=== PATIENT | male | born 1955 | race Caucasian/White ===

== ENCOUNTER 2018-09-26 15:16 | Emergency (ER) | payer OTHER ==
[2018-09-26 15:25] VITALS: TEMP 99.1; BMI 33.5
[2018-09-26] MEDS ORDERED: ONDANSETRON 4 MG/2 ML VIAL IVPUSH ONE (15:26)
[2018-09-26] MEDS ORDERED: SODIUM CHLORIDE 1,000 ML IV STA ×2 (15:26→17:40)
--- NOTE | 2018-09-26 15:26 | PDOC ---
Rapid Medical Evaluation Chief Complaint: Pain Time Seen by Provider: 09/26/18 15:24 Medical Evaluation: Allergies Allergy/AdvReac Type Severity Reaction Status Date / Time No Known Allergies Allergy Verified 09/26/18 15:21 Vital Signs Temp Pulse Resp BP Pulse Ox 99.1 F 120 H 18 105/74 96 09/26/18 15:21 09/26/18 15:21 09/26/18 15:21 09/26/18 15:21 09/26/18 15:21 09/26/18 15:25 Pt c/o: gen abd pain, n/v/belching, diarrhea Pt on brief exam: upper abd tenderness, tachy, diaphoretic Pt ordered for: labs, ekg, ua, iv, ivf pt to proceed to the ED Discharge Disposition - Diagnosis Abdominal pain - Referrals - Patient Instructions - Post Discharge Activity
[2018-09-26] MEDS ORDERED: ONDANSETRON 4 MG/2 ML VIAL ONE (15:54)
[2018-09-26] MEDS ORDERED: FAMOTIDINE 20 MG/50 ML IVPB 20 MG/50 ML MG IVPB ONE ×2 (16:52→17:02)
[2018-09-26] MEDS ORDERED: ACETAMINOPHEN 1000 MG/100 ML VIAL (NON FORMULARY) IVPB ONE (16:52)
[2018-09-26] MEDS ORDERED: ACETAMINOPHEN INJECTION 100 ML IVPB ONE (17:02)
[2018-09-26 17:09] LABS: BASO % 0.2 % (0-2.0); HEMATOCRIT 47.2 % (35.4-49); LYMPH % 5.8 % (8-40); MCH 29.3 pg (25.7-33.7); MCHC 33.9 g/dl (32.0-35.9); MEAN CELL VOLUME 86.4 fl (80-96); MEAN PLT VOLUME 10.1 fl (7.5-11.1); MONO % 5.2 % (3.8-10.2); NEUT % 88.8 % (42.8-82.8); PLATELET COUNT 215 K/MM3 (134-434); RBC 5.46 M/mm3 (4.00-5.60); RDW 13.1 % (11.9-15.9); WHITE BLOOD COUNT 8.1 K/mm3 (4.0-10.0)
[2018-09-26 17:13] LABS: EPI CELLS 1.4 /HPF (0-5/HPF); HYALINE CASTS 7 /lpf (0-8); URINE APPEARANCE CLEAR; URINE BACTERIA 1.7 /hpf (NEGATIVE); URINE BILIRUBIN NEGATIVE (NEGATIVE); URINE COLOR DK YELLOW; URINE GLUCOSE (UA) NEGATIVE (NEGATIVE); URINE KETONE TRACE (NEGATIVE); URINE LEUK ESTERASE TRACE (NEGATIVE); URINE NITRITE NEGATIVE (NEGATIVE); URINE PROTEIN NEGATIVE (NEGATIVE); URINE RBC 3 /hpf (0-4); URINE WBC 3 /hpf (0-5)
[2018-09-26 17:51] LABS: ALBUMIN 3.9 g/dl (3.4-5.0); ALK PHOS 57 U/L (45-117); ANION GAP 10 MMOL/L (8-16); BILIRUBIN,TOTAL 0.8 mg/dL (0.2-1); BLOOD UREA NITROGEN 19.1 mg/dL (7-18); CHLORIDE 106 mmol/L (98-107); CO2 24 mmol/L (21-32); GLUCOSE,RANDOM 110 mg/dL (74-106); LIPASE 73 U/L (73-393); MAGNESIUM 2.1 mg/dL (1.8-2.4); POTASSIUM 4.5 mmol/L (3.5-5.1); SGOT/AST 25 U/L (15-37); SGPT/ALT 35 U/L (13-61); SODIUM 140 mmol/L (136-145); TOT PROT 7.6 g/dl (6.4-8.2)
--- NOTE | 2018-09-26 18:43 | PDOC ---
History of Present Illness - General Chief Complaint: Pain Stated Complaint: SENT BY PCP Time Seen by Provider: 09/26/18 15:24 - History of Present Illness Initial Comments: 63yo M with PMH of ?HTN/HLD, cholecystectomy (patient is unsure and does not take medications) sent by his primary care physician for evaluation of abdominal pain. Patient states he started having abdominal pain at around 6am. The pain is rated 10/10 and described as "sharp." Nothing makes it better or worse. He also complains of nausea and multiple episodes of nonbloody bilious vomiting and retching. Has not been able to tolerate po intake. He has felt pain similar to this before but is unable to state a diagnosis. Follows with a GI physician but has not seen them in two years. Had a brown semi-loose stool this morning that was without blood. Colonoscopy was a few years ago and was "normal." Had an endoscopy more than ten years ago which was "normal." Denies urinary symptoms. No fevers, chills, chest pain, or shortness of breaht. PCP: Dr. Beltran GI: Dr. Aburto Past History - Past Medical History Allergies/Adverse Reactions: Allergies Allergy/AdvReac Type Severity Reaction Status Date / Time No Known Allergies Allergy Verified 09/26/18 15:21 Home Medications: Ambulatory Orders Ondansetron [Zofran -] 4 mg PO TID #21 tablet 09/26/18 COPD: No - Immunization History Immunization Up to Date: Yes - Suicide/Smoking/Psychosocial Hx Smoking History: Never smoked Information on smoking cessation initiated: No Hx Alcohol Use: No Drug/Substance Use Hx: No Review of Systems - Review of Systems Comments:: Constitutional: no fever, no chills HEENT: no throat pain, no dysphagia Cardiovascular: no chest pain, no palpitations Respiratory: no cough, no shortness of breath Gastrointestinal: +abdominal pain, +vomiting Genitourinary: no dysuria, no frequency Musculoskeletal: no myalgia, no arthralgia Skin: no rash, no itching Neurologic: no headache, no weakness *Physical Exam - Vital Signs Last Vital Signs Temp Pulse Resp BP Pulse Ox 99.1 F 120 H 18 105/74 96 09/26/18 15:21 09/26/18 15:21 09/26/18 15:21 09/26/18 15:21 09/26/18 15:21 - Physical Exam Comments: General: Awake, alert, and fully oriented, in no acute distress Head: No signs of trauma Eyes: EOMI, sclera anicteric ENT: Dry mucus membranes Neck: Normal ROM, supple Lungs: Lungs clear, Normal breath sounds Cardio: Regular rhythm, S1 and S2 present Abdomen: Epigastric tenderness to palpation extending toward right of umbilicus. Soft, nondistended. No guarding, no rebound, no masses. Extremities: Normal range of motion, Distal pulses present SKIN: Warm, Dry, normal turgor Neurologic: Cranial nerves II through XII grossly intact. Normal speech ED Treatment Course - LABORATORY CBC & Chemistry Diagram: 09/26/18 16:26 09/26/18 16:26 - ADDITIONAL ORDERS Additional order review: Laboratory Results 09/26/18 09/26/18 09/26/18 16:26 16:26 16:26 Sodium 140 Potassium 4.5 Chloride 106 Carbon Dioxide 24 Anion Gap 10 BUN 19.1 H Creatinine 1.0 Est GFR (CKD-EPI)AfAm 93.73 Est GFR (CKD-EPI)NonAf 80.87 Random Glucose 110 H Lactic Acid 2.8 H* Calcium 9.0 Magnesium 2.1 Total Bilirubin 0.8 AST 25 ALT 35 Alkaline Phosphatase 57 Creatine Kinase 154 Creatine Kinase Index 0.6 CK-MB (CK-2) < 1.0 Troponin I < 0.02 Total Protein 7.6 Albumin 3.9 Lipase 73 Urine Color Dk yellow Urine Appearance Clear Urine pH 7.0 Ur Specific [place] 1.028 Urine Protein Negative Urine Glucose (UA) Negative Urine Ketones Trace H Urine Blood Negative Urine Nitrite Negative Urine Bilirubin Negative Urine Urobilinogen 1.0 Ur Leukocyte Esterase Trace Urine WBC (Auto) 3 Urine RBC (Auto) 3 Urine Casts (Auto) 7 U Epithel Cells (Auto) 1.4 Urine Bacteria (Auto) 1.7 09/26/18 16:26 RBC 5.46 MCV 86.4 MCHC 33.9 RDW 13.1 MPV 10.1 Neutrophils % 88.8 H Lymphocytes % 5.8 L Monocytes % 5.2 Eosinophils % 0.0 Basophils % 0.2 - RADIOLOGY Radiology Studies Ordered: Category Date Time Status ABDOMEN & PELVIS CT WITH CONTR [CT] Stat CT Scan 09/26/18 16:52 Ordered CHEST X-RAY PORTABLE* [RAD] Stat Radiology 09/26/18 17:40 Taken - Medications Given in the ED: ED Medications Discontinued Medications Generic Name Dose Route Start Last Admin Trade Name Edwin PRN Reason Stop Dose Admin Acetaminophen 1,000 mg 09/26/18 16:52 09/26/18 17:06 Ofirmev Injection - IVPB 09/26/18 16:53 1,000 mg ONCE ONE Administration Sodium Chloride 1,000 mls @ 1,000 mls/hr 09/26/18 15:26 09/26/18 16:35 Normal Saline - IV 09/26/18 16:25 1,000 mls/hr ASDIR STA Administration Famotidine/Sodium Chloride 20 mg in 50 mls @ 100 mls/hr 09/26/18 16:52 17:06 Pepcid 20 Mg Premixed Ivpb - IVPB 09/26/18 17:21 100 mls/hr ONCE ONE Administration Sodium Chloride 1,000 mls @ 1,000 mls/hr 09/26/18 17:40 09/26/18 18:03 Normal Saline - IV 09/26/18 18:39 1,000 mls/hr ASDIR STA Administration Ondansetron HCl 4 mg 09/26/18 15:26 09/26/18 16:35 Zofran Injection IVPUSH 09/26/18 15:27 4 mg ONCE ONE Administration Medical Decision Making - Medical Decision Making 63yo M with PMH of ?HTN/HLD, cholecystectomy (patient is unsure and does not take medications) sent by his primary care physician for evaluation of abdominal pain. DDX including but not limited to gastroenteritis, gastritis, mesenteric ischemia , appendicitis, diverticulitis, pancreatitis, nephrolithiasis, UTI, ACS, AAA VSS significant for tachycardia, HR 120 Labs, EKG, CXR CTAP Fluids, Zofran, Famotidine, Ofirmev Patient noted to be hypoxic in the low 90s while laying in stretcher-- sats increased with supplemental oxygen. Patient denies history of lung pathology. Does not complain of shortness of breath or chest pain. D-Dimer ordered to assess for PE CBC WBC 8.1 K/mm3 (4.0-10.0) 09/26/18 16:26 RBC 5.46 M/mm3 (4.00-5.60) 09/26/18 16:26 Hgb 16.0 GM/dL (11.7-16.9) 09/26/18 16:26 Hct 47.2 % (35.4-49) 09/26/18 16:26 MCV 86.4 fl (80-96) 09/26/18 16:26 MCH 29.3 pg (25.7-33.7) 09/26/18 16:26 MCHC 33.9 g/dl (32.0-35.9) 09/26/18 16:26 RDW 13.1 % (11.9-15.9) 09/26/18 16:26 Plt Count 215 K/MM3 (134-434) 09/26/18 16:26 MPV 10.1 fl (7.5-11.1) 09/26/18 16:26 Absolute Neuts (auto) 7.2 K/mm3 (1.5-8.0) 09/26/18 16:26 Neutrophils % 88.8 % (42.8-82.8) H 09/26/18 16:26 Lymphocytes % 5.8 % (8-40) L 09/26/18 16:26 Monocytes % 5.2 % (3.8-10.2) 09/26/18 16:26 Eosinophils % 0.0 % (0-4.5) 09/26/18 16:26 Basophils % 0.2 % (0-2.0) 09/26/18 16:26 Nucleated RBC % 0 % (0-0) 09/26/18 16:26 No anemia or leukocytosis CMP Sodium 140 mmol/L (136-145) 09/26/18 16:26 Potassium 4.5 mmol/L (3.5-5.1) 09/26/18 16:26 Chloride 106 mmol/L (98-107) 09/26/18 16:26 Carbon Dioxide 24 mmol/L (21-32) 09/26/18 16:26 Anion Gap 10 MMOL/L (8-16) 09/26/18 16:26 BUN 19.1 mg/dL (7-18) H 09/26/18 16:26 Creatinine 1.0 mg/dL (0.55-1.3) 09/26/18 16:26 Est GFR (CKD-EPI)AfAm 93.73 09/26/18 16:26 Est GFR (CKD-EPI)NonAf 80.87 09/26/18 16:26 Random Glucose 110 mg/dL (74-106) H 09/26/18 16:26 Lactic Acid 2.8 mmol/L (0.4-2.0) H 09/26/18 20:20 Calcium 9.0 mg/dL (8.5-10.1) 09/26/18 16:26 Magnesium 2.1 mg/dL (1.8-2.4) 09/26/18 16:26 Total Bilirubin 0.8 mg/dL (0.2-1) 09/26/18 16:26 AST 25 U/L (15-37) 09/26/18 16:26 ALT 35 U/L (13-61) 09/26/18 16:26 Alkaline Phosphatase 57 U/L (45-117) 09/26/18 16:26 Creatine Kinase 154 U/L (26-308) 09/26/18 16:26 Creatine Kinase Index 0.6 % (0.0-5.0) 09/26/18 16:26 CK-MB (CK-2) < 1.0 ng/mL (0.5-3.6) 09/26/18 16:26 Troponin I < 0.02 ng/ml (0.00-0.05) 09/26/18 16:26 Total Protein 7.6 g/dl (6.4-8.2) 09/26/18 16:26 Albumin 3.9 g/dl (3.4-5.0) 09/26/18 16:26 Lipase 73 U/L (73-393) 09/26/18 16:26 Electrolytes unremarkable Lactate 2.8. Ordered another 1L NS as well as repeat lactate. CXR without acute pathology, my impression EKG: rate 105, QTc 446, sinus tachycardia CTAP: "Sequential axial images were obtained from the domes of the diaphragms through the symphysis pubis following the administration of both oral and intravenous contrast material. Atelectatic changes are noted at both lung bases. The pancreas is normal in size and texture no pancreatic masses identified. There are no peripancreatic inflammatory changes or fluid collections suspicious for acute/chronic pancreatitis. The liver is normal in size. It is hypodense in texture consistent with diffuse fatty infiltration. No mass lesions identified within the liver. The spleen, adrenal glands and kidneys demonstrate no significant abnormalities. The gallbladder has been removed. There is no evidence of intra-abdominal or retroperitoneal lymphadenopathy or fluid collections. There is no evidence of pneumoperitoneum, bowel obstruction or intra-abdominal abscess There is no CT evidence of acute appendicitis or diverticulitis. Examination of the pelvis demonstrates no evidence of pelvic masses, fluid collections or lymphadenopathy. There is malrotation of the colon with the entire colon on the right side of the abdomen. There is no evidence of acute bony abnormalities. IMPRESSION: 1. Bibasilar atelectasis. 2. Diffuse fatty infiltration of liver. 3. Colonic malrotation. 4. No evidence pancreatitis or acute pathology within the abdomen or pelvis. Please see above discussion. " Patient signed out to Dr. Pham and adi team 09/26/18 19:44 *DC/Admit/Observation/Transfer Diagnosis at time of Disposition: Abdominal pain Qualifiers: Abdominal location: unspecified location Qualified Code(s): R10.9 - Unspecified abdominal pain - Discharge Dispostion Disposition: HOME Condition at time of disposition: Stable - Prescriptions Prescriptions: Ondansetron [Zofran -] 4 mg PO TID #21 tablet - Referrals - Patient Instructions Printed Discharge Instructions: DI for Abdominal Pain-Adult Additional Instructions: 1) Please follow-up with your primary care doctor in the next 2-3 days. Please call tomorrow to schedule a follow up appointment. If you cannot follow up with your doctor within 1 week please return to the Emergency Department for any urgent issues. 2) Your laboratory / imaging results were normal here in the ER. 3) If you have any worsening of symptoms or any other concerns please return to the ER immediately. Return if worsening symptoms including fevers, headache, vomiting, visual or hearing disturbances, abdominal pain, chest pain, shortness of breath, syncope, dehydration, inability to take things by mouth/vomiting, altered mental status, or worsening concerning symptoms. 4) Please continue taking your home medications as directed. Your medications on discharge include Zofran for nausea. Do not drink alcohol with your medications. - Post Discharge Activity
--- NOTE | 2018-09-26 19:12 | PDOC ---
Documentation entered by Oleksandr Callahan SCRIBE, acting as scribe for Geronimo Moreno MD. Geronimo Moreno MD: This documentation has been prepared by the [place] sullivan Elijah, SCRIBE, under my direction and personally reviewed by me in its entirety. I confirm that the documentation accurately reflects all work, treatment, procedures, and medical decision making performed by me. Attending Attestation - Resident Resident Name: Tatiana Arshad - ED Attending Attestation I have performed the following: I have examined & evaluated the patient, The case was reviewed & discussed with the resident, I agree w/resident's findings & plan, Exceptions are as noted - HPI HPI: 09/26/18 17:48 Patient is a 63 year old male with a significant past medical history of HTN and Colonoscopy (x2) who presents to the ED with sharp abdominal pain beginning today. The patient reports that the pain is in the Upper Abdominal and can be worsened with touch. Patient also reports nausea and 3-4 episodes of NBNB vomit associated with back pain. Patient also mentioned months of having food and drink go the wrong way with consumption. Denies Dyspnea on exertion, cough, fever, chills Allergies: NKA PCP: Dr. Beltran - Physicial Exam PE: 09/26/18 17:39 GENERAL: The patient is awake, alert, and fully oriented, Nontoxic - in no acute distress. HEAD: Normocephalic, atraumatic. EYES: extraocular movements intact, sclera anicteric, conjunctiva clear. ENT: Normal voice, Moist mucous membranes. NECK: Normal range of motion, supple ABDOMEN: mild R sided abd ttp, no rebound/guarding NEUROLOGICAL: No facial assymetry, Normal speech, moving all 4 ext spontaneously and symmetrically PSYCH: Normal mood, normal affect. SKIN: Warm, Dry, normal turgor, - Medical Decision Making 09/26/18 18:11 63y M hx of htn, presents with sharp epgastric/right sided abd pain since earlier today, associated with nebnb vomiting. pt notes pain does occaionally radiate to the back. pt noted to be tachy to 120 which improved without interveition, also slightly hypoxic w triage vital signs but without any respiratory complaints will obtain cxr ddx - pancreatitis, gastritis, pna, liver disease will obtain bloodwork, ct abdomen 09/26/18 19:12 labs reviewed noted for elevated lactic acid awaiting CT abd signed out to evening team to fu and reasesss Heart Score/ECG Review - ECG Impressions Comment:: 09/26/18 19:41 ekg performed 15:19 rate of 105 normal axis normal r wave progression no st change suggestive of acute ischemia impression: sinus tachycardia
[2018-09-26 20:28] VITALS: BP 113/72; PULSE 90
--- NOTE | 2018-09-26 21:29 | PDOC ---
*Physical Exam - Vital Signs Last Vital Signs Temp Pulse Resp BP Pulse Ox 99.1 F 90 20 113/72 99 09/26/18 15:21 09/26/18 20:26 09/26/18 20:26 09/26/18 20:26 09/26/18 20:26 - Physical Exam Comments: 09/26/18 22:41 General Appearance: Nourished. No Apparent Distress HEENT: No Pharyngeal Erythema, Tonsillar Exudate, Tonsillar Erythema Neck: No Cervical Lymphadenopathy Respiratory/Chest: Lungs Clear, Normal Breath Sounds. No Crackles, Rales, Rhonchi, Wheezing Cardiovascular: Regular Rhythm, Regular Rate. No Murmur, Gallops, Rubs Gastrointestinal/Abdominal: Normal Bowel Sounds, Soft. No Guarding, Rebound, Tenderness Musculoskeletal: No CVA Tenderness Extremity: Normal Capillary Refill Integumentary: Normal Color, Dry, Warm Neurologic: Fully Oriented, Alert, Normal Mood/Affect, Normal Response, ED Treatment Course - LABORATORY CBC & Chemistry Diagram: 09/26/18 16:26 09/26/18 16:26 - ADDITIONAL ORDERS Additional order review: Laboratory Results 09/26/18 09/26/18 09/26/18 20:20 20:20 16:26 D-Dimer < 215 Sodium Potassium Chloride Carbon Dioxide Anion Gap BUN Creatinine Est GFR (CKD-EPI)AfAm Est GFR (CKD-EPI)NonAf Random Glucose Lactic Acid 0.9 2.8 H* Calcium Magnesium Total Bilirubin AST ALT Alkaline Phosphatase Creatine Kinase Creatine Kinase Index CK-MB (CK-2) Troponin I Total Protein Albumin Lipase Urine Color Urine Appearance Urine pH Ur Specific [place] Urine Protein Urine Glucose (UA) Urine Ketones Urine Blood Urine Nitrite Urine Bilirubin Urine Urobilinogen Ur Leukocyte Esterase Urine WBC (Auto) Urine RBC (Auto) Urine Casts (Auto) U Epithel Cells (Auto) Urine Bacteria (Auto) 09/26/18 09/26/18 16:26 16:26 D-Dimer Sodium 140 Potassium 4.5 Chloride 106 Carbon Dioxide 24 Anion Gap 10 BUN 19.1 H Creatinine 1.0 Est GFR (CKD-EPI)AfAm 93.73 Est GFR (CKD-EPI)NonAf 80.87 Random Glucose 110 H Lactic Acid Calcium 9.0 Magnesium 2.1 Total Bilirubin 0.8 AST 25 ALT 35 Alkaline Phosphatase 57 Creatine Kinase 154 Creatine Kinase Index 0.6 CK-MB (CK-2) < 1.0 Troponin I < 0.02 Total Protein 7.6 Albumin 3.9 Lipase 73 Urine Color Dk yellow Urine Appearance Clear Urine pH 7.0 Ur Specific [place] 1.028 Urine Protein Negative Urine Glucose (UA) Negative Urine Ketones Trace H Urine Blood Negative Urine Nitrite Negative Urine Bilirubin Negative Urine Urobilinogen 1.0 Ur Leukocyte Esterase Trace Urine WBC (Auto) 3 Urine RBC (Auto) 3 Urine Casts (Auto) 7 U Epithel Cells (Auto) 1.4 Urine Bacteria (Auto) 1.7 09/26/18 16:26 RBC 5.46 MCV 86.4 MCHC 33.9 RDW 13.1 MPV 10.1 Neutrophils % 88.8 H Lymphocytes % 5.8 L Monocytes % 5.2 Eosinophils % 0.0 Basophils % 0.2 - Medications Given in the ED: ED Medications Discontinued Medications Generic Name Dose Route Start Last Admin Trade Name Freq PRN Reason Stop Dose Admin Acetaminophen 1,000 mg 09/26/18 16:52 09/26/18 17:06 Ofirmev Injection - IVPB 09/26/18 16:53 1,000 mg ONCE ONE Administration Sodium Chloride 1,000 mls @ 1,000 mls/hr 09/26/18 15:26 09/26/18 16:35 Normal Saline - IV 09/26/18 16:25 1,000 mls/hr ASDIR STA Administration Famotidine/Sodium Chloride 20 mg in 50 mls @ 100 mls/hr 09/26/18 16:52 17:06 Pepcid 20 Mg Premixed Ivpb - IVPB 09/26/18 17:21 100 mls/hr ONCE ONE Administration Sodium Chloride 1,000 mls @ 1,000 mls/hr 09/26/18 17:40 09/26/18 18:03 Normal Saline - IV 09/26/18 18:39 1,000 mls/hr ASDIR STA Administration Ondansetron HCl 4 mg 09/26/18 15:26 09/26/18 16:35 Zofran Injection IVPUSH 09/26/18 15:27 4 mg ONCE ONE Administration Medical Decision Making - Medical Decision Making 09/26/18 22:39 CT abdomen/pelvis demonstrated no acute pathology as read by our radiologist. D -dimer was negative. Repeat lactate was improved. The patient was reassessed and reports improvement in their symptoms and tolerated PO here in the ED. We are comfortable discharging the patient home in stable condition. Patient and family made aware of impression and plan, return precautions discussed including but not limited to worsening pain or symptoms, fevers, or signs of infection, chest pain, respiratory distress, inability to tolerate oral intake, dehydration, syncope, or neurologic changes. The patient is to follow up with PMD and specialist as recommended within 1 week, follow up information provided and the patient will call for an appointment. The patient is to take medications as instructed for duration of time and continue with supportive care , avoid triggers and precipitants. Patient is safe for outpatient follow-up. *DC/Admit/Observation/Transfer Diagnosis at time of Disposition: Abdominal pain Qualifiers: Abdominal location: unspecified location Qualified Code(s): R10.9 - Unspecified abdominal pain - Discharge Dispostion Disposition: HOME Condition at time of disposition: Stable Decision to Admit order: No - Prescriptions Prescriptions: Ondansetron [Zofran -] 4 mg PO TID #21 tablet - Referrals - Patient Instructions Printed Discharge Instructions: DI for Abdominal Pain-Adult Additional Instructions: 1) Please follow-up with your primary care doctor in the next 2-3 days. Please call tomorrow to schedule a follow up appointment. If you cannot follow up with your doctor within 1 week please return to the Emergency Department for any urgent issues. 2) Your laboratory / imaging results were normal here in the ER. 3) If you have any worsening of symptoms or any other concerns please return to the ER immediately. Return if worsening symptoms including fevers, headache, vomiting, visual or hearing disturbances, abdominal pain, chest pain, shortness of breath, syncope, dehydration, inability to take things by mouth/vomiting, altered mental status, or worsening concerning symptoms. 4) Please continue taking your home medications as directed. Your medications on discharge include Zofran for nausea. Do not drink alcohol with your medications. - Post Discharge Activity
--- NOTE | 2018-09-27 08:33 | EKG ---
Test Reason : Blood Pressure : / mmHG Vent. Rate : 105 BPM Atrial Rate : 105 BPM P-R Int : 164 ms QRS Dur : 080 ms QT Int : 338 ms P-R-T Axes : 031 -05 042 degrees QTc Int : 446 ms SINUS TACHYCARDIA OTHERWISE NORMAL ECG WHEN COMPARED WITH ECG OF 06-MAR-2006 00:41, VENT. RATE HAS INCREASED BY 43 BPM Confirmed by BHAVANA ARREAGA MD ([id number]) on 09/27/2018 8:33:04 AM Referred By: Confirmed By:BHAVANA ARREAGA MD
== END 2018-09-26 22:00 | disposition home or self-care (01) ==
LOC: JER 15:16
PROC: 3E033NZ Introduction of Analgesics, Hypnotics, Sedatives into Peripheral Vein, Percutaneous Approach (ICD-10-PCS; principal; 2018-09-26)
PROC: 3E033GC Introduction of Other Therapeutic Substance into Peripheral Vein, Percutaneous Approach (ICD-10-PCS; 2018-09-26)
PROC: 3E0337Z Introduction of Electrolytic and Water Balance Substance into Peripheral Vein, Percutaneous Approach (ICD-10-PCS; 2018-09-26)
DX: R10.9 Unspecified abdominal pain (principal); I10 Essential (primary) hypertension; E78.5 Hyperlipidemia, unspecified
CPT/HCPCS: 36415; 71045-TC-FY; 74177-TC; 80053; 81003; 82550; 82553; 83605; 83690; 83735; 84484; 85025; 85379; 87086; 93005; 93010; 99283-25; J0131; J7030